=== PATIENT | female | born 1965 | race Caucasian/White ===

== ENCOUNTER 2017-07-06 11:32 | Emergency (ER) | payer BC, MEDICAID ==
[2017-07-06 11:44] VITALS: BP 124/85
--- NOTE | 2017-07-06 11:50 | EDM.PDOC ---
ED HPI GENERAL MEDICAL PROBLEM - General Chief Complaint: Chest Pain Stated Complaint: CHEST PAIN Time Seen by Provider: 07/06/17 11:49 Source of Information: Reports: Patient History Limitations: Reports: No Limitations - History of Present Illness INITIAL COMMENTS - FREE TEXT/NARRATIVE: 51-year-old female into the ED with chest pain. Of note she is currently incarcerated in the [facility]. She reports she's been having intermittent central chest discomfort off and on since yesterday afternoon worse this morning again. She states she can usually walk around [place] [address] outside but found that she could not because it made the pain worse. She has no known coronary disease. She states she's had a previous CVA with left hemiparesis 3 years ago. Cause of the stroke was never identified. She apparently is on aspirin 81 mg once daily. By pressure is usually well controlled. She had some left facial numbness and pressure this morning over her maxillary sinus. No recent upper respiratory tract infection. No cough or cold or sputum production. There is a history of GERD and she was started on Prilosec once daily yesterday. She did receive a nitroglycerin tablet at the senior care and it seemed to alleviate a good deal of the central chest heaviness. ECG done by triage nurse here shows sinus rhythm at 70/m. There are Q waves in V1 and near Q-wave in V2 suggestive of possible old anteroseptal myocardial infarction however there is no signs of acute ischemia. She quit smoking 3 months ago. Strong family history of multiple problems with murray's father at age 71 after having 2 pacemakers and myocardial infarction. Onset: Gradual (Off and on since yesterday.) Onset Date: 07/05/17 Onset Time: 09:00 Duration: Hour(s):, Intermittent, Waxing/Waning Location: Reports: Chest (Central chest pressure discomfort.), Other (Left facial cheek numbness and pressure discomfort) Quality: Reports: Ache, Pressure Severity: Moderate Improves with: Reports: Medication (Nitroglycerin tablet seemed to improve the chest discomfort substantially.) Worsens with: Reports: Other (Seem to be worse on exertion with walking.) Context: Denies: Activity, Exercise, Lifting, Sick Contact, Trauma Associated Symptoms: Reports: Chest Pain, Malaise (Particularly noted this morning.), Shortness of Breath, Weakness. Denies: Cough, cough w sputum (See history of present illness), Diaphoresis, Fever/Chills, Headaches, Loss of Appetite, Nausea/Vomiting, Rash, Seizure Treatments [employer]: Reports: Nitroglycerin (0.4 mg given sublingually at the senior care. ) Chest Pain Score (Numeric/FACES): 4 - Related Data Allergies Allergy/AdvReac Type Severity Reaction Status Date / Time No Known Allergies Allergy Verified 02/24/14 23:02 CDT Home Meds: Home Meds Pregabalin [Lyrica] 150 mg PO BID 02/24/14 [History] Past Medical History Musculoskeletal History: Reports: Neck Pain, Chronic (Degenerative disc disease in her neck.), Osteoarthritis Neurological History: Reports: CVA (Claims that she had a CVA with left yosef- paresis involving her face and hand a little bit of her leg 2 years ago.Took a long time to recover.), Vertigo (Intermittent dizziness when she looks upwards suggestive of vertebrobasilar insufficiency.) Social & Family History - Tobacco Use Smoking Status *Q: Current Every Day Smoker Years of Tobacco use: 15 Second Hand Smoke Exposure: Yes - Alcohol Use Days Per Week of Alcohol Use: 0 - Recreational Drug Use Recreational Drug Use: No - Living Situation & Occupation Living situation: Reports: Occupation: Unemployed ED ROS GENERAL - Review of Systems Review Of Systems: See Below (Currently incarcerated in [place] [facility].) Constitutional: Reports: Malaise, Fatigue (More or less malaise and fatigue starting today.), Decreased Appetite. Denies: Fever, Chills HEENT: Reports: Other Respiratory: Reports: Shortness of Breath (Describes a discomfort in her left face over the maxillary sinus area warm and numbness tingling sensation.). Denies: Wheezing, Pleuritic Chest Pain, Sputum Cardiovascular: Reports: Chest Pain, Dyspnea on Exertion, Lightheadedness. Denies: Blood Pressure Problem (See history of present illness), Claudication, Edema, Orthopnea, Palpitations Endocrine: Reports: Fatigue GI/Abdominal: Reports: No Symptoms : Reports: No Symptoms Musculoskeletal: Reports: Neck Pain Skin: Reports: No Symptoms (Chronically because of degenerative disc disease and osteoarthritic changes.) Neurological: Reports: No Symptoms, Dizziness, Numbness. Denies: Headache, Pre- Existing Deficit (Left face over her maxillary sinus area.), Seizure, Syncope, Tingling, Tremors, Trouble Speaking, Difficulty Walking, Weakness, Change in Speech Psychiatric: Reports: Anxiety Hematologic/Lymphatic: Reports: No Symptoms Immunologic: Reports: No Symptoms ED EXAM, GENERAL - Physical Exam Exam: See Below Exam Limited By: No Limitations General Appearance: Alert, WD/WN, Anxious, Mild Distress (Mildly anxious.), Other Eye Exam: Bilateral Eye: Normal Inspection Throat/Mouth: Normal Inspection, Normal Lips, Normal Teeth, Normal Oropharynx, Other Head: Atraumatic, Normocephalic (Smile is symmetrical.) Neck: Normal Inspection, Supple, Full Range of Motion ( I laterally.), Tender Lateral (Crepitus with movement.), Other Respiratory/Chest: Lungs Clear, Normal Breath Sounds, No Accessory Muscle Use, Chest Non-Tender, Respiratory Distress (Mild tachypnea at rest.) Cardiovascular: Normal Peripheral Pulses, Regular Rate, Rhythm, No Edema, No Gallop, No Murmur Peripheral Pulses: 3+: Posterior Tibial (L), Posterior Tibial (R), Dorsalis Pedis (L), Dorsalis Pedis (R) GI/Abdominal: Normal Bowel Sounds, Soft, Non-Tender, No Organomegaly, No Distention Back Exam: Normal Inspection, Full Range of Motion. No: CVA Tenderness (L), CVA Tenderness (R) Extremities: Normal Inspection, Normal Range of Motion, Non-Tender, No Pedal Edema, Normal Capillary Refill Neurological: Alert, Oriented, CN II-XII Intact, Normal Cognition, No Motor/ Sensory Deficits Psychiatric: Normal Affect, Normal Mood Skin Exam: Warm, Dry, Intact, Normal Color, No Rash EKG INTERPRETATION EKG Date: 07/06/17 Time: 11:45 Rhythm: NSR Rate (Beats/Min): 78 [place]: Normal P-Wave: Present QRS: Other (Q waves V1 and near Q-wave in V2 consider possible old anteroseptal myocardial infarction no ECGs for comparison purposes) ST-T: Normal QT: Prolonged (Slightly prolonged.) Course - Vital Signs Last Recorded V/S: Last Vital Signs Temp 36.1 C 07/06/17 11:43 Pulse 72 07/06/17 11:43 Resp 20 07/06/17 11:43 BP 124/85 07/06/17 11:43 Pulse Ox 100 07/06/17 11:43 - Orders/Labs/Meds Labs: Laboratory Tests 07/06/17 07/06/17 07/06/17 Range/Units 12:43 12:45 12:45 WBC 8.51 (3.98-10.04) K/mm3 RBC 4.45 (3.98-5.22) M/mm3 Hgb 12.5 (11.2-15.7) gm/L Hct 38.5 (34.1-44.9) % MCV 86.5 (79.4-94.8) fl MCH 28.1 (25.6-32.2) pg MCHC 32.5 (32.2-35.5) g/dl RDW Std Deviation 40.9 (36.4-46.3) fL Plt Count 339 (182-369) K/mm3 MPV 10.2 (9.4-12.3) fl Neutrophils % (Manual) 62 H (40-60) % Band Neutrophils % 0 (0-10) % Lymphocytes % (Manual) 34 (20-40) % Atypical Lymphs % 0 % Monocytes % (Manual) 1 L (2-10) % Eosinophils % (Manual) 1 (0.7-5.8) % Basophils % (Manual) 2 H (0.1-1.2) Platelet Estimate Adequate RBC Morph Comment Normal PT 10.6 (8.0-13.0) SECONDS INR 0.97 Sodium (136-145) mEq/L Potassium (3.5-5.1) mEq/L Chloride (98-107) mEq/L Carbon Dioxide (21-32) mEq/L Anion Gap (5-15) BUN (7-18) mg/dL Creatinine (0.55-1.02) mg/dL Est Cr Clr Drug Dosing mL/min Estimated GFR (MDRD) (>60) mL/min BUN/Creatinine Ratio (14-18) Glucose (74-106) mg/dL Calcium (8.5-10.1) mg/dL Magnesium 2.1 (1.8-2.4) mg/dl Total Bilirubin (0.2-1.0) mg/dL AST (15-37) U/L ALT (14-59) U/L Alkaline Phosphatase (46-116) U/L CK-MB (CK-2) (0-3.6) ng/ml Troponin I (0.00-0.056) ng/mL C-Reactive Protein (<1.0) mg/dL [id number] Pept (0-125) pg/mL Total Protein (6.4-8.2) g/dl Albumin (3.4-5.0) g/dl Globulin gm/dL Albumin/Globulin Ratio (1-2) H. pylori IgG Antibody (NEGATIVE) 07/06/17 07/06/17 07/06/17 Range/Units 12:45 12:45 12:45 WBC (3.98-10.04) K/mm3 RBC (3.98-5.22) M/mm3 Hgb (11.2-15.7) gm/L Hct (34.1-44.9) % MCV (79.4-94.8) fl MCH (25.6-32.2) pg MCHC (32.2-35.5) g/dl RDW Std Deviation (36.4-46.3) fL Plt Count (182-369) K/mm3 MPV (9.4-12.3) fl Neutrophils % (Manual) (40-60) % Band Neutrophils % (0-10) % Lymphocytes % (Manual) (20-40) % Atypical Lymphs % % Monocytes % (Manual) (2-10) % Eosinophils % (Manual) (0.7-5.8) % Basophils % (Manual) (0.1-1.2) Platelet Estimate RBC Morph Comment PT (8.0-13.0) SECONDS INR Sodium 143 (136-145) mEq/L Potassium 3.5 (3.5-5.1) mEq/L Chloride 109 H (98-107) mEq/L Carbon Dioxide 26 (21-32) mEq/L Anion Gap 11.5 (5-15) BUN 5 L (7-18) mg/dL Creatinine 0.8 (0.55-1.02) mg/dL Est Cr Clr Drug Dosing 68.05 mL/min Estimated GFR (MDRD) > 60 (>60) mL/min BUN/Creatinine Ratio 6.3 L (14-18) Glucose 93 (74-106) mg/dL Calcium 9.0 (8.5-10.1) mg/dL Magnesium (1.8-2.4) mg/dl Total Bilirubin 0.5 (0.2-1.0) mg/dL AST 11 L (15-37) U/L ALT 20 (14-59) U/L Alkaline Phosphatase 61 (46-116) U/L CK-MB (CK-2) < 0.5 (0-3.6) ng/ml Troponin I < 0.017 (0.00-0.056) ng/mL C-Reactive Protein < 0.2 (<1.0) mg/dL Xlr-I-Iahrdbkhoff Pept 204 H (0-125) pg/mL Total Protein 6.6 (6.4-8.2) g/dl Albumin 4.0 (3.4-5.0) g/dl Globulin 2.6 gm/dL Albumin/Globulin Ratio 1.5 (1-2) H. pylori IgG Antibody Negative (NEGATIVE) Meds: Medications Discontinued Medications Generic Name Dose Route Start Last Admin Trade Name Freq PRN Reason Stop Dose Admin Acetaminophen 975 mg 07/06/17 15:19 07/06/17 15:26 Tylenol PO 07/06/17 15:20 975 mg NOW ONE Administration Aspirin 324 mg 07/06/17 11:58 07/06/17 12:17 Aspirin PO 07/06/17 11:59 324 mg ONETIME ONE Administration Al Hydroxide/Mg Hydroxide 30 0 ml 07/06/17 12:13 07/06/17 12:25 ml/ Lidocaine HCl 15 ml PO 07/06/17 12:14 45 ml ONETIME ONE Administration Nitroglycerin/Dextrose 25 mg in 250 mls @ 3 mls/hr 07/06/17 12:00 07/06/17 12 :17 Nitroglycerin 25 Mg/D5w 250 Ml IV 10 mcg/min TITRATE JERMAN 6 mls/hr 5 MCG/MIN Administration - Radiology Interpretation Free Text/Narrative:: 51-year-old female presents from the [facility] with a history of intermittent central chest pressure discomfort since yesterday. Symptoms seem to wax and wane but seemed to be worsened by walking and no exertional activity. She also reports some numbness and tingling in the left yosef-face. Describes the pressure in the central chest discomfort as a heavy pressure discomfort relieved with nitroglycerin 0.4 mg sublingually given at the senior care. She did not receive any extra aspirin. History of previous CVA. History of smoking up until 3 months ago. Has degenerative disc suggest disease in her cervical spine. Plan she'll be treated as if she may be a myocardial infarction until enzymes are back. Given 324 mg aspirin will be started nitro drip at 5 mcg /m as her BP was 100/69. My initial impression is not cardiac related. We'll give her a GI cocktail as I suspect esophagitis as the cause. - Re-Assessments/Exams Free Text/Narrative Re-Assessment/Exam: 07/06/17 12:42 chest x-ray reveals hyperinflated lung rouse, cardiac silhouette. 07/06/17 14:40 labs are back revealing a total white count of 8.51 with 62% neutrophils. Hemoglobin is 12.5 hematocrit is 38.5. Platelets normal 3 and 39, 000. Coags are normal. Sodium 143 potassium low-normal at 3.5. Foot 109 bicarbonate 26. And a gap normal at 11.5. Glucose 93. CK-MB fraction is less than 0.5 troponin was less than 0.017 CRP is less than 0.2H pylori interestingly was negative. BNP is 204 minimally elevated. Therefore at this time there is no evidence that her current chest pain is cardiac related. Strongly suspect GI in origin i.e. esophagitis. That's why the nitroglycerin tablet helped as it relax the smooth muscle in the wall of the esophagus. She was started on Prilosec yesterday and needs to continue this and for sure. Time may be should be taking it twice daily likely week bedtime and morning.. 07/06/17 15:21 after discussion with the patient she does feel there is a component of anxiety that helps contribute to her symptoms and she is not sleeping very well. Atarax 25 mg at bedtime may help her sleep better and relieve some of her anxiety symptoms. Serum magnesium level also came back at 1.5 she may well benefit from a magnesium supplement such as magnesium oxide 400 mg once daily or Slow-Mag 71.5 mg tablet once daily whenever the senior care formulary .allows. Of note she remains chest pain-free after the GI cocktail. She was relieved to find out that she did not have any significant heart problems. Departure - Departure Time of Disposition: 15:23 Disposition: Home, Self-Care 01 Condition: Fair Clinical Impression: Non-cardiac chest pain, Esophagitis Gastroesophageal reflux disease Qualifiers: Esophagitis presence: with esophagitis Qualified Code(s): K21.0 - Gastro- esophageal reflux disease with esophagitis Instructions: Gastroesophageal Reflux Disease, Adult, [id number] Referrals: Regina España PA-C [Primary Care Provider] - Forms: ED Department Discharge Additional Instructions: Evaluation in the emergency him today in regards to development of central chest pain off and on since yesterday. Worse again this morning. Workup in the ED therefore consisted of ruling out any blood clots in the lung or heart related illness. Heart tracing was within normal limits. Chest x-ray was normal. White count was 8.51 with a normal differential hemoglobin is good at 12.5. Cardiac markers are completely negative. My impression was that the pain was coming from the GI tract i.e. reflux and spasm of the esophagus is whether nitroglycerin tablet relieved a lot of the discomfort. Relaxes the smooth muscle in the wall of the food pipe. H. pylori was negative. Therefore treatment I would recommend his Prilosec twice daily that time and morning for the next week and then once daily at bedtime. This should help heal the esophagus and help control reflux. May have Maalox Tums or Rolaids on hand if needed. As we discussed use of Atarax at bedtime may be available to you in the senior care system which would alleviate some of the anxiety you aren't experiencing as well as promote sleep. You are given Tylenol 975 mg by mouth prior to leaving the department I believe the headache was precipitated by the nitroglycerin drip.
[2017-07-06] MEDS ORDERED: Aspirin 81 MG Tab.Chew PO ONE (11:58)
[2017-07-06] MEDS ORDERED: Nitroglycerin/D5W 25 MG/250 ML BOTTLE IV SCH (12:00)
[2017-07-06] MEDS ORDERED: Alum Hydrox/Mag Hydrox/Simeth 30 ML, Lidocaine 2% 15 ML PO ONE ×2 (12:13)
--- NOTE | 2017-07-06 15:10 | CR ---
Chest: Frontal view of the chest was obtained. Comparison: No previous study. Heart size is normal. Mild tortuosity of the thoracic aorta is seen. Lungs are clear. Minimal scoliosis is noted within the spine. Impression: 1. Nothing acute is appreciated on frontal chest x-ray. Diagnostic code #2
[2017-07-06] MEDS ORDERED: Acetaminophen 325 MG Tab PO ONE (15:19)
== END 2017-07-06 15:46 | disposition home or self-care (01) ==
LOC: SUPCPDRO 11:32 → JD.ED 11:32
DX: K21.0 Gastro-esophageal reflux disease with esophagitis (principal); F17.200 Nicotine dependence, unspecified, uncomplicated; Z86.73 Personal history of transient ischemic attack (TIA), and cerebral infarction without residual deficits
CPT/HCPCS: 36415; 71010; 80053; 82553; 83735; 83880; 84484; 85025; 85610; 86140; 86677; 93005; 96365; 96366; 99285; A9270